=== PATIENT | male | born 1945 | race Caucasian/White ===

== ENCOUNTER → 2020-08-11 12:22 | Outpatient (ROUT) | payer OTHER, SELFPAY ==
[2020-08-11 12:25] LABS: Bacteria Urine None Seen; RBC Urine None Seen (0-5/HPF); WBC Urine None Seen (0-5/HPF)
[2020-08-11 12:50] LABS: Appearance Urine UA CLEAR; Bilirubin Urine UA NEGATIVE (NEGATIVE); Color Urine UA YELLOW; Glucose Urine UA NEGATIVE (Negative); Ketones Urine UA NEGATIVE (NEGATIVE); Leukocyte Esterase Urine UA NEGATIVE (NEGATIVE); Nitrite Urine UA NEGATIVE (Negative); Occult Blood Urine UA NEGATIVE (Negative); Protein Urine UA NEGATIVE (Negative); Urobilinogen Urine UA 0.2 E.U./dL (0.2)
[2020-08-11 12:57] LABS: Culture Indicated Urine Cult Not Indicated; Urine Comments Microscopic Normal
[2020-08-12 07:35] LABS: PSA Free % 24.3 % (.); PSA, Total 6.1 ng/mL (0.0-4.0)
== END ==
PROVIDERS: Visit Provider Internal Medicine
DX: R35.0 Frequency of micturition (principal); Z12.5 Encounter for screening for malignant neoplasm of prostate
CPT/HCPCS: 81001; 84153; 84154

== ENCOUNTER → 2021-04-12 16:46 | Outpatient (CLI) | payer OTHER, SELFPAY ==
--- NOTE | 2021-04-12 18:22 | DI.MRI.S_ITS ---
PROCEDURE: MR HEAD/BRAIN WO/W CON INDICATIONS: OTHER AMNESIA TECHNIQUE: Noncontrast axial T1 spin echo, axial T2 fast spin echo, sagittal and axial FLAIR, coronal T2 fast spin echo, axial gradient echo, axial diffusion and ADC through the brain. After the administration of contrast, axial and coronal T1 spin echo with fat saturation through the brain. COMPARISON: None. FINDINGS: Image quality: Excellent. CSF spaces: Basal cisterns are patent. No extra-axial fluid collections. Ventricles are normal in size and shape. Brain: No midline shift. No intracranial bleeds or masses. No abnormal intracranial enhancement. There is cerebral volume loss for age. There is periventricular white matter chronic small vessel ischemic change. The brainstem appears normal. Diffusion-weighted images demonstrate no acute ischemic insults. No chronic ischemic insults. Normal intravascular flow voids are present. Skull and face: Calvarial marrow is normal in signal. Orbits appear normal. Sinuses: Sinuses and mastoids appear clear. IMPRESSION: Unremarkable brain MRI for age, without an imaging explanation found for the patient's presenting symptoms. No masses or abnormal enhancement can be seen. No findings of acute or subacute infarction can be seen. Dictated by: Luigi White M.D. on 04/12/2021 at 17:40 Approved by: Luigi White M.D. on 04/12/2021 at 17:41
== END ==
PROVIDERS: PCP Internal Medicine; Referring Provider Internal Medicine; Visit Provider Internal Medicine
DX: R41.3 Other amnesia (principal)
CPT/HCPCS: 70553; A9579

== ENCOUNTER → 2023-04-27 08:41 | Outpatient (CLI) | payer OTHER, SELFPAY ==
[2023-04-27 09:20] LABS: Add Manual Diff / Slide Review NO; Basophils Absolute Auto 0 /uL (0-100); Basophils Percent Auto 0.5 % (0-2); Eosinophils Absolute Auto 100 /uL (0-450); Eosinophils Percent Auto 3.3 % (2-4); Hematocrit 44.7 % (41-53); Hemoglobin 15.3 g/dL (13.5-17.5); Lymphocytes Absolute Auto 800 /uL (1100-4500); Lymphocytes Percent Auto 23.8 % (25-40); Mean Corpuscular HGB Conc 34.2 % (30-36); Mean Corpuscular Hemoglobin 33.8 PG (26-34); Mean Corpuscular Volume 98.8 fL (80-100); Monocytes Absolute Auto 300 /uL (0-900); Neutrophils Absolute Auto 2000 /uL (1500-7000); Neutrophils Percent Auto 62.4 % (50-75); Platelet Count 117 X10^3/uL (150-400); Red Blood Cell Count 4.53 X10^6/uL (4.5-5.9); Red Cell Distribution Width 12.3 % (11.6-14.8); White Blood Cell Count 3.2 X10^3/uL (4.5-11.0)
[2023-04-27 09:26] LABS: Hemoglobin A1C% w Est Avg Glu 5.1 % (4.0-6.0)
[2023-04-27 09:27] LABS: Alanine Aminotransferase 19 IU/L (<50); Albumin 4.3 g/dL (3.5-5.0); Albumin Globulin Ratio 1.6 (1.0-2.8); Alkaline Phosphatase 68 U/L (38-126); Aspartate Aminotransferase 29 IU/L (17-59); BUN Creatinine Ratio 10.5 (6-22); Bilirubin Total 0.8 mg/dL (0.2-1.3); Blood Urea Nitrogen 8 mg/dL (9-20); Calcium 9.4 mg/dL (8.4-10.2); Carbon Dioxide 29 mmol/L (22-32); Chloride 103 mmol/L (98-107); Estimated Glomerular Filt Rate > 60 mL/min (>60); Globulin 2.7 g/dL (1.7-4.1); Glucose 105 mg/dL (80-110); HEMOLYSIS < 15 (0-50); Sodium 140 mmol/L (137-145)
[2023-04-28 14:37] LABS: PSA Free % 24.6 % (.); PSA, Total 3.9 ng/mL (0.0-4.0)
== END ==
PROVIDERS: PCP Family Medicine; Referring Provider Family Medicine; Visit Provider Family Medicine
DX: R19.7 Diarrhea, unspecified (principal); Z87.898 Personal history of other specified conditions; R14.0 Abdominal distension (gaseous)
CPT/HCPCS: 36415; 80053; 83036; 84153; 84154; 85025

== ENCOUNTER → 2023-10-24 08:22 | Outpatient (CLI) | payer OTHER, SELFPAY ==
--- NOTE | 2023-10-24 08:22 | DI.US.S_ITS ---
PROCEDURE: US ABDOMEN COMPLETE INDICATIONS: Bloating, intermittent fever TECHNIQUE: Real-time scanning was performed of the abdominal and retroperitoneal organs, with image documentation. COMPARISON: None. FINDINGS: Liver: 16 cm. Cluster of cysts seen in the left lobe measuring up to 5.9 x 3.6 cm. No measurable solid component. Septations are noted. Gallbladder: Multiple gallbladder polyps measuring up 5 mm, not requiring dedicated follow-up per latest guidelines. Biliary ducts: Intrahepatic bile ducts are non-dilated. Extrahepatic bile duct caliber measures 5 mm. Normal is 6-7 mm or less in diameter, or 10 mm or less post-cholecystectomy. Pancreas: Not well seen due to bowel gas Spleen: Spleen is normal in size and homogeneous in echotexture. Kidneys: Kidneys are normal in size and echotexture. Right kidney measures 11 cm long; left kidney measures 11 cm long. No hydronephrosis or nephrolithiasis. No solid masses or complicated cystic lesion. Simple appearing cyst is seen in the left kidney measuring up to 3.5 cm. Aorta: Proximal aorta is not well seen. No aneurysmal segment visualized on ultrasound Iliacs: Proximal common iliac arteries are normal in caliber at less than 2.5 cm. IVC: Not well seen due to bowel gas Miscellaneous: No free abdominal fluid. IMPRESSION: No acute sonographic abnormality. Incidental findings are noted above. If there is further concern, consider CT or MRI. Dictated by: Bernardo Gonzalez M.D. on 10/24/2023 at 10:27 Approved by: Bernardo Gonzalez M.D. on 10/24/2023 at 10:30
== END ==
PROVIDERS: PCP Family Medicine; Referring Provider Physician Assistant; Visit Provider Physician Assistant
DX: K82.4 Cholesterolosis of gallbladder (principal); N28.1 Cyst of kidney, acquired; K42.9 Umbilical hernia without obstruction or gangrene; R50.9 Fever, unspecified; R14.0 Abdominal distension (gaseous)
CPT/HCPCS: 76700

== ENCOUNTER 2024-05-22 03:50 | Emergency (ER) | payer MEDICARE, SELFPAY ==
[2024-05-22] VITALS (8 sets, daily range): BP systolic 130–150; BP diastolic 67–85; PULSE 56–76; RESP 18; TEMP 36.7; O2SAT 95–98
--- NOTE | 2024-05-22 05:48 | ED_ITS ---
HPI - General Adult General Stated complaint: AMS Time Seen by Provider: 05/22/24 05:48 Source: patient, RN notes reviewed and old records reviewed Mode of arrival: EMS Limitations: no limitations History of Present Illness HPI narrative: 79-year-old male no reported medical issues who presents with complaint of acute alteration mental status. Patient states about every 2 weeks or so he will get sores in his mouth and then have an episode where he will be altered that resolves. Patient states this has been happening for several years. This evening he lives next door to his nephew went over the house when inside of it woke up with the nephew from sleep nephew states patient was walking ambulating moving normally but was not making eye contact was not responding to any questions. He states it is lasted for about 30 minutes. Since resolved and he is back to his baseline. He states he had never seen 1 of these episodes before. Patient states he has had before they are not typically witnessed but he states he will wake up walking or moving and not know where he was or what happened with the loss of time. No fevers, no headaches, no sudden vision changes. Patient notes he gets ulcers with in his mouth before these episodes usually within a couple hours he has not episode he will have appear to have depressive feelings for a couple days and then improves. Patient states no chest pain no shortness of breath no nausea no vomiting no issues with bowel movements or urination. He has not had any issues with movement or speech otherwise. Nephew notes he did not have any facial droop or difficulty with movement. He actually walked through the house went back outside used a chair and was attempting to use it like a walker. Patient normally ambulates without any assistance. He has not on any daily medications, no prior surgeries. No known drug allergies. Denies tobacco, alcohol or recreational drugs. Nephew at bedside who states he was back to his normal mentation. Patient does not have a primary care physician currently. Related Data Home Medications Medication Instructions Recorded Confirmed tamsulosin 0.4 mg capsule 0.4 mg PO DAILY 04/27/23 10/18/23 Allergies Allergy/AdvReac Type Severity Reaction Status Date / Time No Known Drug Allergies Allergy Unverified 10/18/23 09:19 Review of Systems Review of Systems ROS Unobtainable: All systems reviewed & are unremarkable except as noted in HPI and below Patient History Medical History Mumps Measles Chicken pox Cataracts, bilateral History of elevated PSA Social History Smoking Status: Former smoker Smoking Status: Former smoker Exam Narrative Exam Narrative: GEN: well nourished, well appearing male, alert and oriented x 3, patient appears to be in mild distress. HEENT: Atraumatic, pupils are equal round reactive to light, extraocular movements are intact, nares are clear, TMs are clear with no fluid, there is no conjunctival pallor. Throat is clear without any exudates, erythema, tonsillar enlargement or uvular deviation, patient does have some small areas of ulceration on the inner cheeks bilaterally. No other rash or skin changes noted on his face oropharynx or body. HEART: Regular rate and rhythm without murmur, clicks, rubs. No carotid bruits, pulses are equal in upper and lower extremities LUNGS:Lungs clear to auscultation, no wheezes, rales, crackles, chest moves symmetrically ABD:bowel sounds normal, soft, non-tender, no guarding, rebound, rigidity, no ma sses noted, no hepatosplenomegaly :No CVA tenderness MSCL: Non-tender, no muscle atrophy, muscles strength 5/5 upper and lower extremities, full range of motion, normal gait NEURO:CN 2-12 intact, sensation normal, finger nose finger test normal, heel chavez test normal Medical Decision Making [facility] Narrative Medical decision making narrative: 89-year-old male presents with alteration mental status unsure of exact timeframe patient woke his nephew up by going next door where he lives states it lasted for least 30 minutes he was back to baseline at this time. Patient requesting discharge home. He is alert, appropriate is with family discussed I would recommend workup including labs, chest x-ray, head CT and EKG as well as urinalysis. Patient defers these but is open to following up primary care. We will give contact for primary care follow up and discussed return precautions but also reviewed that patient should have workup. Both patient and nephew expressed understanding. Patient is afebrile otherwise appropriate vitals. Discharge Plan Departure Patient Disposition: Home Clinical Impression: Acute alteration in mental status Activity Restrictions/Additional Instructions: I do recommend that you have workup this morning in the department. Please follow up there is a card included in your discharge paperwork with phone number for physicians taking new patients please call to set up follow up in the short term. Please return for fevers any recurrent episodes or symptoms, persistent symptoms, severe headaches, sudden vision changes, chest pain or shortness of breath, persistent vomiting, any facial droop, difficulty with speech, weakness, difficulty with ambulation or other new or concerning changes. Prescriptions: No Action tamsulosin 0.4 mg capsule 0.4 mg PO DAILY Referrals: Melissa Mckeon DO [Primary Care Provider] - Stand Alone Forms: Patient Portal/API/Survey
== END 2024-05-22 06:11 | disposition home or self-care (01) ==
PROVIDERS: Emergency Provider Emergency Medicine; PCP Family Medicine
DX: R41.82 Altered mental status, unspecified (principal)
CPT/HCPCS: 99281

== ENCOUNTER → 2024-05-28 13:16 | Outpatient (CLI) | payer MEDICARE, SELFPAY ==
--- NOTE | 2024-05-28 13:18 | DI.CT.S_ITS ---
PROCEDURE: CT HEAD/BRAIN WO CON INDICATIONS: episodes of somnambulism/AMS. TECHNIQUE: Noncontrast 4.5 mm thick angled axial sections acquired from the foramen magnum to the vertex, with coronal and sagittal reformats. For radiation dose reduction, the following was used: automated exposure control, adjustment of mA and/or kV according to patient size. COMPARISON: None. FINDINGS: Image quality: Diagnostic. CSF spaces: Basal cisterns are patent. No extra-axial fluid collections. The ventricles are symmetric in size and shape. Brain: No intracranial bleeds or masses. There is cerebral volume loss for age, with resultant ventricular and sulcal prominence. There are periventricular and deep white matter chronic small vessel ischemic changes. There is intracranial internal carotid artery atherosclerosis. Skull and face: Calvarium and visualized facial bones appear intact, without suspicious lesions. Sinuses: Visualized sinuses and mastoids are clear. IMPRESSION: No acute intracranial pathology. Age-related global volume loss and chronic microvascular ischemic changes are present. Dictated by: Luis Brink M.D. on 05/28/2024 at 13:58 Approved by: Luis Brink M.D. on 05/28/2024 at 14:00
== END ==
LOC: CT 13:18
PROVIDERS: PCP Family Medicine; Referring Provider Family Medicine; Visit Provider Family Medicine
DX: R41.82 Altered mental status, unspecified (principal); F51.3 Sleepwalking [somnambulism]; I65.29 Occlusion and stenosis of unspecified carotid artery
CPT/HCPCS: 70450

== ENCOUNTER 2024-07-22 14:37 | Emergency (ER) | payer MEDICARE, SELFPAY ==
[2024-07-22] VITALS (8 sets, daily range): BP systolic 135–150; BP diastolic 69–79; PULSE 69–87; RESP 12–20; TEMP 36.6; O2SAT 93–97; BMI 25.1
--- NOTE | 2024-07-22 14:44 | EKG_ITS ---
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
--- NOTE | 2024-07-22 14:44 | DI.CT.S_ITS ---
PROCEDURE: CT ANGIO HEAD AND NECK INDICATIONS: Altered mental status TECHNIQUE: After the administration of intravenous contrast, 1 mm thick sections acquired from the aortic arch through the [place]. 3-dimensional hjhowhi-jsznoqwiq-rrcfcmaluc (MIP) and/or volume rendering reformats were acquired of the central intracranial vasculature and neck separately. For radiation dose reduction, the following was used: automated exposure control, adjustment of mA and/or kV according to patient size. COMPARISON: None. FINDINGS: Image quality: Diagnostic. BRAIN: Please refer to same day CT of the head. HEAD CT ANGIOGRAPHY: Anterior circulation: Intracranial internal carotid arteries are normal in size and flow with atherosclerotic calcifications in. The flow within the paired anterior cerebral arteries is normal and symmetric. The flow within the middle cerebral arteries is normal and symmetric. The anterior communicating artery is seen. No aneurysms are seen. Posterior circulation: Visualized portions of the vertebral arteries demonstrate normal caliber, and join to form a normal appearing basilar artery. Flow within the posterior cerebral arteries is normal and symmetric. No aneurysms are seen. NECK CT ANGIOGRAPHY: Carotid system: The great vessels demonstrate a conventional anatomy as they arise from the aortic arch. The origins of the common carotid arteries appear patent. The common carotid arteries demonstrate normal caliber and courses. The bifurcation regions demonstrate coarse calcifications with mild, less than 50% stenosis bilaterally The internal carotid arteries demonstrate normal calibers and courses. Posterior circulation: The origins of the vertebral arteries both appear widely patent. The more superior extracranial portions of both vertebral arteries also demonstrate normal courses and calibers. They join to form a normal appearing basilar artery. Soft tissues: Visualized neck soft tissues demonstrate no suspicious abnormalities. Bones: No suspicious bony lesions. Visualized cervical spine appears normally aligned. Degenerative changes of the spine. IMPRESSION: No significant intracranial arterial abnormality is seen. No significant abnormality is seen within the arteries of the neck. Any quantitative measurements of stenosis were performed using NASCET criteria. Dictated by: Luis Brink M.D. on 07/22/2024 at 15:45 Approved by: Luis Brink M.D. on 07/22/2024 at 15:52
--- NOTE | 2024-07-22 14:44 | DI.CT.S_ITS ---
PROCEDURE: CT HEAD/BRAIN WO CON INDICATIONS: Altered mental status TECHNIQUE: Noncontrast 4.5 mm thick angled axial sections acquired from the foramen magnum to the vertex, with coronal and sagittal reformats. For radiation dose reduction, the following was used: automated exposure control, adjustment of mA and/or kV according to patient size. COMPARISON: [facility], CT, CT HEAD/BRAIN WO CON, 05/28/2024, 13:24. FINDINGS: Image quality: Diagnostic. CSF spaces: Basal cisterns are patent. No extra-axial fluid collections. The ventricles are symmetric in size and shape. Brain: No intracranial bleeds or masses. There is cerebral volume loss for age, with resultant ventricular and sulcal prominence. There are periventricular and deep white matter chronic small vessel ischemic changes. There is intracranial internal carotid artery atherosclerosis. Skull and face: Calvarium and visualized facial bones appear intact, without suspicious lesions. Sinuses: Visualized sinuses and mastoids are clear. IMPRESSION: No acute intracranial pathology. Dictated by: Luis Brink M.D. on 07/22/2024 at 15:43 Approved by: Luis Brink M.D. on 07/22/2024 at 15:45
--- NOTE | 2024-07-22 14:47 | ED.AMS ---
HPI - Altered Mental Status General Chief Complaint: Altered Mental Status Stated Complaint: GLF, Confusion Time Seen by Provider: 07/22/24 14:44 History of Present Illness HPI narrative: Patient brought in by ambulance from home. Blood sugar 109. Patient was with his nephew. He was doing some house work. Nephew heard him fall. Found him slumped up against the wall. No known injury. Patient denies any pain or injury at this time. He does not recall any events of today. Nephew states that he has had episodes of amnesia for years. MRI from April 12, 2021 was reviewed for amnesia. Patient does not recall any recent chest pain shortness of breath. No nausea or vomiting or diarrhea no black or bloody stools. He is awake alert oriented to himself and date of only. Moving all 4 extremities without difficulty. Fast exam is negative. Related Data Home Medications Medication Instructions Recorded Confirmed rifaximin 550 mg tablet (Xifaxan) 550 mg PO 3XD 06/10/24 06/10/24 Previous Rx's Medication Instructions Recorded tamsulosin 0.4 mg capsule 0.4 mg PO DAILY #90 caps 06/10/24 esomeprazole magnesium 40 mg 40 mg PO DAILY Erosive gastritis 06/13/24 capsule,delayed release (Nexium) #90 caps Allergies Allergy/AdvReac Type Severity Reaction Status Date / Time No Known Drug Allergies Allergy Verified 07/22/24 15:38 Review of Systems Review of Systems Narrative: GENERAL: Negative chills, fatigue, malaise, fever, sweats. HEENT: Negative sinus pain, ear pain, sore throat RESPIRATORY: Negative dyspnea, cough CARDIOVASCULAR: Negative chest pain, palpitations, positive syncope GASTROINTESTINAL: Negative vomiting, nausea, abdominal pain : Negative dysuria, frequency, hematuria MUSCULOSKELETAL: Negative muscle or bony pain SKIN: Negative rash, skin lesions NEUROLOGIC: Negative weakness, numbness, negative headache negative slurred speech ROS Unobtainable: All systems reviewed & are unremarkable except as noted in HPI and below Patient History Medical History (Updated 07/22/24 @ 17:16 by Ralph Chatterjee MD) Acute alteration in mental status Mumps Measles Chicken pox Cataracts, bilateral History of elevated PSA Social History Smoking Status: Former smoker Smoking Status: Former smoker Exam Narrative Exam Narrative: GENERAL: in no distress, not toxic not dyspneic HEAD: Normocephalic. Nontender face and scalp and skull. EYES: Pupils equal round ENT: Mucous membranes moist. NECK: Trachea midline. No midline tenderness or step-off of the cervical thoracic or lumbar spine CARDIOVASCULAR: Regular rate and rhythm RESPIRATORY: Clear to auscultation. Breath sounds equal bilaterally. No wheezes, rales, or rhonchi. GASTROINTESTINAL: Abdomen soft, non-tender EXTREMITIES: No gross deformities. BACK: No flank tenderness. NEURO: AOx 2. 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 Negative pronator drift lift each leg off the bed without drift. Fast exam otherwise negative SKIN: Warm and dry PSYCH: Not anxious, is cooperative Initial Vital Signs Initial Vital Signs: Vital Signs Temperature 97.8 F 07/22/24 14:40 Pulse Rate 76 07/22/24 14:40 Respiratory Rate 18 07/22/24 14:40 Blood Pressure 141/71 H 07/22/24 14:40 Pulse Oximetry 96 07/22/24 14:40 Oxygen Delivery Method Room Air 07/22/24 14:40 Course Orders Ordered: Discontinued Medications Sodium Chloride (Sodium Chloride 0.9% Flush) 50 ml IV NOW ONE Stop: 07/22/24 15:59 Last Admin: 07/22/24 16:46 Dose: 50 ml Documented By: JUDE Vital Signs Vital signs: Vital Signs - 8 hr 07/22/24 14:40 07/22/24 14:46 07/22/24 14:46 Temperature 97.8 F Pulse Rate 76 78 Respiratory Rate 18 Blood Pressure 141/71 H 141/71 H Pulse Oximetry 96 97 Oxygen Delivery Method Room Air 07/22/24 14:49 07/22/24 14:49 07/22/24 15:00 Temperature Pulse Rate 77 78 Respiratory Rate Blood Pressure 135/69 Pulse Oximetry 93 95 Oxygen Delivery Method 07/22/24 15:00 07/22/24 15:30 07/22/24 16:25 Temperature Pulse Rate 87 69 Respiratory Rate 20 16 Blood Pressure 139/75 Pulse Oximetry 97 Oxygen Delivery Method 07/22/24 16:25 07/22/24 16:30 07/22/24 16:30 Temperature Pulse Rate 74 Respiratory Rate 18 Blood Pressure 150/73 H 143/79 H Pulse Oximetry Oxygen Delivery Method 07/22/24 17:00 07/22/24 17:00 Temperature Pulse Rate 72 Respiratory Rate 12 Blood Pressure 144/72 H Pulse Oximetry Oxygen Delivery Method MDM - Altered Mental Status Lab Data 07/22/24 14:40 07/22/24 14:40 Labs: Lab Results 07/22/24 07/22/24 07/22/24 Range/Units 14:40 17:15 17:15 WBC 7.8 (4.5-11.0) X10^3/uL RBC 4.35 L (4.5-5.9) X10^6/uL Hgb 14.8 (13.5-17.5) g/dL Hct 42.2 (41-53) % MCV 97.0 (80-100) fL MCH 34.1 H (26-34) PG MCHC 35.1 (30-36) % RDW 13.1 (11.6-14.8) % Plt Count 148 L (150-400) X10^3/uL Neut % (Auto) 68.7 (50-75) % Lymph % (Auto) 20.6 L (25-40) % [place] % (Auto) 8.4 (3-14) % Eos % (Auto) 1.6 L (2-4) % Baso % (Auto) 0.7 (0-2) % Neut # (Auto) 5400 (1997-7960) /uL Lymph # (Auto) 1600 (5542-8939) /uL [place] # (Auto) 600 (0-900) /uL Eos # (Auto) 100 (0-450) /uL Baso # (Auto) 100 (0-100) /uL PT 12.3 (9.4-12.5) SECONDS INR 1.1 (0.9-1.3) APTT 30 (25.1-36.5) SECONDS Sodium 140 (137-145) mmol/L Potassium 3.8 (3.4-5.1) mmol/L Chloride 103 (98-107) mmol/L Carbon Dioxide 26 (22-32) mmol/L BUN 27 H (9-20) mg/dL Creatinine 1.07 (0.66-1.25) mg/dL Estimated GFR > 60 (>60) mL/min BUN/Creatinine Ratio 25.2 H (6-22) Glucose 131 H (80-110) mg/dL Calcium 9.0 (8.4-10.2) mg/dL Total Bilirubin 0.7 (0.2-1.3) mg/dL AST 37 (17-59) IU/L ALT 28 (<50) IU/L Alkaline Phosphatase 82 (38-126) U/L Total Creatine Kinase 212 H (55-170) U/L Troponin I < 0.012 (0.01-0.034) ng/mL Total Protein 7.8 (6.3-8.2) g/dL Albumin 4.6 (3.5-5.0) g/dL Globulin 3.2 (1.7-4.1) g/dL Albumin/Globulin Ratio 1.4 (1.0-2.8) Urine Color Yellow Urine Appearance Clear Urine pH 7.0 Normal (4.5-8.0) Ur Specific [place] 1.010 (1.000-1.035) Urine Protein Negative (Negative) Urine Glucose (UA) Negative (Negative) g/dL Urine Ketones Negative (NEGATIVE) Urine Occult Blood Negative (Negative) Urine Nitrate Negative (Negative) Urine Bilirubin Negative (NEGATIVE) Urine Urobilinogen 0.2 (0.2) E.U./dL Ur Leukocyte Esterase Negative (NEGATIVE) Urine RBC None seen (0-5/HPF) Urine WBC 0-1/hpf (0-5/HPF) Ur Squamous Epith Cells None seen (0-5/HPF) Urine Bacteria None seen (None) Ur Culture Indicated? Cult not indicated Vol Urine Centrifuged 10ml (spun) U Opiates 300ng/mL cut Negative (Negative) Ur Oxycodone Screen Negative (Negative) Urine Methadone Screen Negative (Negative) Ur Barbiturates Screen Negative (Negative) U Tricyclic Antidepress Negative (Negative) Ur Phencyclidine Scrn Negative (Negative) Ur Amphetamines Screen Negative (Negative) U Methamphetamines Scrn Negative (Negative) Ur MDMA Scrn (Ecstasy) Negative (Negative) U Benzodiazepines Scrn Negative (Negative) Urine Cocaine Screen Negative (Negative) U Marijuana (THC) Screen Negative (Negative) Urine Specific [place] Normal (Normal) Ethyl Alcohol < 10 ( - 10) mg/dL Ur Creatinine Normal (Normal) Imaging Data CT scan - head: Radiologist's Impression: [address] [address] [address] Scan Report Signed Patient: Yumiko Brown MR#: [id number] : 1945 Acct:[id number] Age/Sex: 79 / M Date of Service: 07/22/24 Loc: ED Accession Number: [id number] Procedure: CT head/brain wo con Ordering Provider: Ralph Chatterjee MD PROCEDURE: CT HEAD/BRAIN WO CON INDICATIONS: Altered mental status TECHNIQUE: Noncontrast 4.5 mm thick angled axial sections acquired from the foramen magnum to the vertex, with coronal and sagittal reformats. For radiation dose reduction, the following was used: automated exposure control, adjustment of mA and/or kV according to patient size. COMPARISON: [facility], CT, CT HEAD/BRAIN WO CON, 05/28/2024, 13:24. FINDINGS: Image quality: Diagnostic. CSF spaces: Basal cisterns are patent. No extra-axial fluid collections. The ventricles are symmetric in size and shape. Brain: No intracranial bleeds or masses. There is cerebral volume loss for age, with resultant ventricular and sulcal prominence. There are periventricular and deep white matter chronic small vessel ischemic changes. There is intracranial internal carotid artery atherosclerosis. Skull and face: Calvarium and visualized facial bones appear intact, without suspicious lesions. Sinuses: Visualized sinuses and mastoids are clear. IMPRESSION: No acute intracranial pathology. Dictated by: Luis Brink M.D. on 07/22/2024 at 15:43 Approved by: Luis Brink M.D. on 07/22/2024 at 15:45 CTA - brain/neck: Radiologist's Impression: [place] [id number] CT Scan Report Signed Patient: Yumiko Brown MR#: [id number] : 1945 Acct:[id number] Age/Sex: 79 / M Date of Service: 07/22/24 Loc: ED Accession Number: [id number] Procedure: CT angio head and neck Ordering Provider: Ralph Chatterjee MD PROCEDURE: CT ANGIO HEAD AND NECK INDICATIONS: Altered mental status TECHNIQUE: After the administration of intravenous contrast, 1 mm thick sections acquired from the aortic arch through the [place]. 3-dimensional hvmrmcs-nqfssbntk-dgvjjgnspe (MIP) and/or volume rendering reformats were acquired of the central intracranial vasculature and neck separately. For radiation dose reduction, the following was used: automated exposure control, adjustment of mA and/or kV according to patient size. COMPARISON: None. FINDINGS: Image quality: Diagnostic. BRAIN: Please refer to same day CT of the head. HEAD CT ANGIOGRAPHY: Anterior circulation: Intracranial internal carotid arteries are normal in size and flow with atherosclerotic calcifications in. The flow within the paired anterior cerebral arteries is normal and symmetric. The flow within the middle cerebral arteries is normal and symmetric. The anterior communicating artery is seen. No aneurysms are seen. Posterior circulation: Visualized portions of the vertebral arteries demonstrate normal caliber, and join to form a normal appearing basilar artery. Flow within the posterior cerebral arteries is normal and symmetric. No aneurysms are seen. NECK CT ANGIOGRAPHY: Carotid system: The great vessels demonstrate a conventional anatomy as they arise from the aortic arch. The origins of the common carotid arteries appear patent. The common carotid arteries demonstrate normal caliber and courses. The bifurcation regions demonstrate coarse calcifications with mild, less than 50% stenosis bilaterally The internal carotid arteries demonstrate normal calibers and courses. Posterior circulation: The origins of the vertebral arteries both appear widely patent. The more superior extracranial portions of both vertebral arteries also demonstrate normal courses and calibers. They join to form a normal appearing basilar artery. Soft tissues: Visualized neck soft tissues demonstrate no suspicious abnormalities. Bones: No suspicious bony lesions. Visualized cervical spine appears normally aligned. Degenerative changes of the spine. IMPRESSION: No significant intracranial arterial abnormality is seen. No significant abnormality is seen within the arteries of the neck. Any quantitative measurements of stenosis were performed using NASCET criteria. Dictated by: Luis Brink M.D. on 07/22/2024 at 15:45 Approved by: Luis Brink M.D. on 07/22/2024 at 15:52 MRI brain: Radiologist's Impression: [address] [address] Magnetic Resonance Report Signed Patient: Yumiko Brown MR#: [id number] : 1945 Acct:[id number] Age/Sex: 79 / M Date of Service: 07/22/24 Loc: ED Accession Number: [id number] Procedure: MR head/brain wo con Ordering Provider: Ralph Chatterjee MD PROCEDURE: MR HEAD/BRAIN WO CON INDICATIONS: Altered mental status TECHNIQUE: Non-contrast axial T1 spin echo, axial T2 fast spin echo, sagittal and axial FLAIR, coronal T2 fast spin echo, axial gradient echo, axial diffusion and ADC through the brain. COMPARISON: None. FINDINGS: Image quality: Excellent. CSF spaces: Ventricles appear symmetric in size and shape. Basal cisterns are patent. No extra-axial fluid collections. Brain: No intracranial bleeds or mass effects. There is cerebral volume loss for age. There are periventricular and deep white matter chronic small vessel ischemic changes. Brainstem appears normal. Diffusion-weighted images show no acute infarct. No chronic ischemic insults. Normal intravascular flow voids are present. Skull and face: Calvarial bone marrow is normal in signal. Bilateral lens replacements. Otherwise, the orbits are unremarkable. Sinuses: Mild diffuse paranasal sinus mucosal thickening. The mastoids are clear. IMPRESSION: No acute or subacute infarct. No acute intracranial abnormalities. Age-related global volume loss and chronic microvascular ischemic changes are present. Dictated by: Luis Brink M.D. on 07/22/2024 at 16:41 Approved by: Luis Brink M.D. on 07/22/2024 at 16:43 [facility] Narrative Medical decision making narrative: Patient brought in by ambulance from home. Blood sugar 109. Patient was with his nephew. He was doing some house work. Nephew heard him fall. Found him slumped up against the wall. No known injury. Patient denies any pain or injury at this time. He does not recall any events of today. Nephew states that he has had episodes of amnesia for years. MRI from April 12, 2021 was reviewed for amnesia. Patient does not recall any recent chest pain shortness of breath. No nausea or vomiting or diarrhea no black or bloody stools. He is awake alert oriented to himself and date of only. Moving all 4 extremities without difficulty. Fast exam is negative. After history and exam, CBC CMP urinalysis drug screen alcohol level EKG troponin CT head CT angiogram head and neck, possible MRI of the brain [facility] Medical records reviewed: MRI for amnesia April 12, 2021 Differential considered: Includes but not limited to Lab Test results independently reviewed as above. Pertinent findings: WBC 7.8 hemoglobin 14.8 INR 1.1 sodium 140 potassium 3.8 BUN 27 total CK 212 troponin less than 0.012, alcohol negative, urinalysis negative nitrate negative leukocyte esterase, drug screen negative Independently reviewed EKG sinus rhythm rate [address] elevation or depression Imaging studies independently reviewed: CT head CT angiogram head and neck no acute finding, MRI brain no acute finding Consultations: None indicated at this time Treatments: None indicated at this time Re-evaluations: 3:30 p.m.. Nephsriram Clark is at bedside. He is behaving at baseline at this point according to Eduardo. He has very well-known history of amnesia. Ongoing for the past 4 years. He was just here in May for ?sleepwalking ?. He does recall that. 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 They were talking about it here. He is starting to recollect events of the day. Mark states he was there when he heard his on-call fall. No seizure activity. He just was looking out with a blank look. This is new for him. Falling with the amnesia. However the amnesia is not new. It will take him a while to get his orientation back he states. 5:18 p.m.. Patient up and walking of the bathroom for urinalysis. No trouble walking. Updated patient and nephew no driving operating machinery until evaluated by family doctor. At this time laboratory studies imaging reassure. Will need referral to Neurology Services by family doctor. No new prescriptions are indicated. Return precautions reviewed. They desire discharge home. He will need outpatient echocardiogram and Holter monitoring. Discussion: Appropriate for discharge home exam is reassuring. Patient up and walking to the bathroom. Nephew states patient is interacting and behaving at baseline. Patient is recalling events more for today as he talks to his nephew. Return precautions reviewed with patient. These episodes are not new. However informed patient no driving operating machinery until seen by primary care. Not toxic at discharge. They desire discharge home. These amnesia episodes are not not new for patient. Diagnosis: Transient global amnesia, syncope Discharge Plan Departure Patient Disposition: Home Clinical Impression: Syncope and collapse, TGA (transient global amnesia) Instructions: DI for Syncope in Adults (Fainting), DI for Transient Global Amnesia Activity Restrictions/Additional Instructions: No driving operating machinery until you see your family doctor. Make appointment tomorrow to be seen within a week. Your exam and laboratory studies imaging studies are reassuring. Keep well hydrated. Return if worse if any questions or concerns. You will need outpatient scheduling for Holter monitor for your heart as well as echocardiogram of the heart. There are many causes for fainting/syncope. Prescriptions: No Action esomeprazole magnesium [Nexium] 40 mg capsule,delayed release(DR/EC) 40 mg PO DAILY Qty: 90 1RF Xifaxan 550 mg tablet 550 mg PO 3XD tamsulosin 0.4 mg capsule 0.4 mg PO DAILY Qty: 90 3RF Referrals: Melissa Mckeon DO [Primary Care Provider] - Stand Alone Forms: Patient Portal/API/Survey
[2024-07-22 14:52] LABS: Add Manual Diff / Slide Review NO; Basophils Absolute Auto 100 /uL (0-100); Basophils Percent Auto 0.7 % (0-2); Eosinophils Absolute Auto 100 /uL (0-450); Eosinophils Percent Auto 1.6 % (2-4); Hematocrit 42.2 % (41-53); Hemoglobin 14.8 g/dL (13.5-17.5); Lymphocytes Absolute Auto 1600 /uL (1100-4500); Lymphocytes Percent Auto 20.6 % (25-40); Mean Corpuscular HGB Conc 35.1 % (30-36); Mean Corpuscular Hemoglobin 34.1 PG (26-34); Monocytes Absolute Auto 600 /uL (0-900); Monocytes Percent Auto 8.4 % (3-14); Neutrophils Absolute Auto 5400 /uL (1500-7000); Neutrophils Percent Auto 68.7 % (50-75); Platelet Count 148 X10^3/uL (150-400); Red Blood Cell Count 4.35 X10^6/uL (4.5-5.9); Red Cell Distribution Width 13.1 % (11.6-14.8); White Blood Cell Count 7.8 X10^3/uL (4.5-11.0)
[2024-07-22 14:57] LABS: INR 1.1 (0.9-1.3); Prothrombin Time 12.3 SECONDS (9.4-12.5)
[2024-07-22 14:59] LABS: PTT Partial Thromboplastin Tim 30 SECONDS (25.1-36.5)
[2024-07-22 15:00] LABS: Alanine Aminotransferase 28 IU/L (<50); Albumin 4.6 g/dL (3.5-5.0); Albumin Globulin Ratio 1.4 (1.0-2.8); Alkaline Phosphatase 82 U/L (38-126); Aspartate Aminotransferase 37 IU/L (17-59); BUN Creatinine Ratio 25.2 (6-22); Bilirubin Total 0.7 mg/dL (0.2-1.3); Blood Urea Nitrogen 27 mg/dL (9-20); Carbon Dioxide 26 mmol/L (22-32); Chloride 103 mmol/L (98-107); Creatine Kinase 212 U/L (55-170); Estimated Glomerular Filt Rate > 60 mL/min (>60); Ethanol (ETOH) < 10 mg/dL; Globulin 3.2 g/dL (1.7-4.1); Glucose 131 mg/dL (80-110); HEMOLYSIS 37 (0-50); Potassium 3.8 mmol/L (3.4-5.1); Sodium 140 mmol/L (137-145); Total Protein 7.8 g/dL (6.3-8.2)
[2024-07-22 15:11] LABS: Troponin I < 0.012 ng/mL (0.01-0.034)
--- NOTE | 2024-07-22 15:40 | PC.NURSE ---
Pt reports that when these events happen they coincide with sores in my mouth.
--- NOTE | 2024-07-22 16:05 | DI.MRI.S_ITS ---
PROCEDURE: MR HEAD/BRAIN WO CON INDICATIONS: Altered mental status TECHNIQUE: Non-contrast axial T1 spin echo, axial T2 fast spin echo, sagittal and axial FLAIR, coronal T2 fast spin echo, axial gradient echo, axial diffusion and ADC through the brain. COMPARISON: None. FINDINGS: Image quality: Excellent. CSF spaces: Ventricles appear symmetric in size and shape. Basal cisterns are patent. No extra-axial fluid collections. Brain: No intracranial bleeds or mass effects. There is cerebral volume loss for age. There are periventricular and deep white matter chronic small vessel ischemic changes. Brainstem appears normal. Diffusion-weighted images show no acute infarct. No chronic ischemic insults. Normal intravascular flow voids are present. Skull and face: Calvarial bone marrow is normal in signal. Bilateral lens replacements. Otherwise, the orbits are unremarkable. Sinuses: Mild diffuse paranasal sinus mucosal thickening. The mastoids are clear. IMPRESSION: No acute or subacute infarct. No acute intracranial abnormalities. Age-related global volume loss and chronic microvascular ischemic changes are present. Dictated by: Luis Brink M.D. on 07/22/2024 at 16:41 Approved by: Luis Brink M.D. on 07/22/2024 at 16:43
[2024-07-22] MEDS: SODIUM CHLORIDE 0.9% FLUSH 50 ML IV (16:46)
--- NOTE | 2024-07-22 17:12 | PC.NURSE ---
Pt is wanting to leave. He is alert and oriented x4. Pt is ambulatory and giving urine sample at this time.
[2024-07-22 17:23] LABS: Appearance Urine UA CLEAR; Bilirubin Urine UA NEGATIVE (NEGATIVE); Color Urine UA YELLOW; Glucose Urine UA NEGATIVE (Negative); Ketones Urine UA NEGATIVE (NEGATIVE); Leukocyte Esterase Urine UA NEGATIVE (NEGATIVE); Nitrite Urine UA NEGATIVE (Negative); Occult Blood Urine UA NEGATIVE (Negative); Protein Urine UA NEGATIVE (Negative); Urobilinogen Urine UA 0.2 E.U./dL (0.2)
[2024-07-22 17:26] LABS: UR Morphine/Opiate cutoff 300 Negative (Negative); Ur Creatinine Normal (Normal); Ur Specific Gravity Normal (Normal); Urine Amphetamines Negative (Negative); Urine Barbiturates Negative (Negative); Urine Benzodiazepines Negative (Negative); Urine Cocaine Negative (Negative); Urine MDMA Negative (Negative); Urine Methadone Negative (Negative); Urine Methamphetamines Negative (Negative); Urine Oxycodone Negative (Negative); Urine Phencyclidine Negative (Negative); Urine Tetrahydrocannabinol Negative (Negative); Urine Tricyclic Antidepressant Negative (Negative); Urine pH Normal (Normal)
[2024-07-22 17:38] LABS: Bacteria Urine None Seen; Culture Indicated Urine Cult Not Indicated; RBC Urine None Seen (0-5/HPF); Squamous Epithelial Cell Urine None Seen (0-5/HPF); Urine Volume 10mL (spun); WBC Urine 0-1/HPF (0-5/HPF)
== END 2024-07-22 17:38 | disposition home or self-care (01) ==
PROVIDERS: Emergency Provider Emergency Medicine; PCP Family Medicine
DX: R55 Syncope and collapse (principal); G45.4 Transient global amnesia
CPT/HCPCS: 36415; 70450; 70496; 70498; 70551; 80053; 80305; 80320; 81001; 82550; 84484; 85025; 85610; 85730; 93005; 96374; 99284; Q9967